=== PATIENT | male | born 1955 | race Caucasian/White ===

== ENCOUNTER 2022-06-25 00:22 | Emergency (ER) | payer OTHER ==
[2022-06-25 01:16] LABS: Hemoglobin 13.8 g/dL (14.0-18.0); Mean Corpuscular HGB CONC 33.9 g/dL (32.0-36.0); Mean Corpuscular Hemoglobin 33.4 pg (27.0-31.0); Mean Corpuscular Volume 98.7 fl (78.0-98.0); Platelet Count 189 10x3/uL (130-400); RBC Distribution Width 11.6 % (11.5-14.5); Red Blood Cell (RBC) Count 4.12 mill/uL (4.70-6.10); White Blood Cell (WBC) Count 7.7 10x3/uL (4.8-10.8)
[2022-06-25 01:28] LABS: ALT (SGPT) 21 U/L (8-55); AST (SGOT) 20 U/L (5-34); Albumin 3.9 g/dL (3.4-4.8); Alkaline Phosphatase 57 U/L (40-110); Anion Gap 15 mmol/L (10-20); BUN (Urea Nitrogen) 20 mg/dL (8.4-25.7); Bilirubin, Total 0.4 mg/dL (0.2-1.2); Calc. Creatinine Clearance 0 mL/min (70-130); Calcium 9.2 mg/dL (7.8-10.44); Carbon Dioxide 25 mmol/L (23-31); Chloride 106 mmol/L (98-107); Estimated GFR 92; Globulin 3.6 g/dL (2.4-3.5); Glucose 105 mg/dL (80-115); Potassium 3.8 mmol/L (3.5-5.1); Protein, Total 7.5 g/dL (5.8-8.1); Sodium 142 mmol/L (136-145)
[2022-06-25 01:41] LABS: Eosinophils 8 % (0-10); Lymphocytes 30 % (21-51); MDiff Complete? YES; Monocytes 9 % (0-10); Neutrophil 53 % (42-75)
[2022-06-25] MEDS ORDERED: Iopamidol-370 76% 500 ML 1 ML ONE (14:58)
== END 2022-06-25 04:54 ==
LOC: ERS 00:22
DX: R06.00 Dyspnea, unspecified (principal); D73.4 Cyst of spleen; I10 Essential (primary) hypertension
CPT/HCPCS: 36415; 71045; 71275; 74177; 80053; 83880; 84484; 85025; 93005; Q9967